=== PATIENT | female | born 1950 | race Hispanic/Latino ===

== ENCOUNTER 2024-07-04 17:09 | Emergency (ER) | payer BC ==
[2024-07-04] VITALS (9 sets, daily range): BP systolic 107–127; BP diastolic 52–64
[~2024-07-04] VITALS: Ht 165.1 cm; Wt 54.0 kg
[~2024-07-04 17:09] MED LIST: ULTRAM50 M1 PO
[2024-07-04] MEDS ORDERED: SODIUM CHLORIDE 0.9% 1,000 ML IV ONE (18:15)
[2024-07-04 18:47] LABS: BASO% 0.3 % (0-3); EOS% 0.4 % (0-8); HEMATOCRIT 36.7 % (37.0-47.0); IMMATURE GRANULOCYTES 0.2 % (0.0-5.0); LYMPH% 11.4 % (15-41); MEAN CELL VOLUME 95.1 fL CALC (80.0-100.0); MEAN CORPUSCULAR HGB 31.1 pG CALC (26.0-32.0); MEAN CORPUSCULAR HGB CONC 32.7 g/dL CAL (32.0-36.0); MONO% 8.6 % (2-13); NEUT# 7.91 thou/uL (2.00-7.15); NEUT% 79.1 % (42-76); RED BLOOD COUNT 3.86 mill/uL (4.20-5.60); RED CELL DISTRI WIDTH 12.4 % (11.5-15.5)
[2024-07-04 18:58] LABS: ALBUMIN 4.1 g/dL (3.2-5.0); BILIRUBIN, TOTAL 0.9 mg/dL (0.02-1.3); CREATININE 0.9 mg/dL (0.5-1.0); POTASSIUM 3.9 mmol/l (3.5-5.1); TOTAL PROTEIN 7.6 g/dL (6.3-8.2)
[2024-07-04 20:46] LABS: URINE BILIRUBIN - DIPSTICK Negative (NEGATIVE); URINE BLOOD DIPSTICK Moderate (NEGATIVE); URINE GLUCOSE - DIPSTICK Negative (NEGATIVE); URINE KETONE Negative (NEGATIVE); URINE NITRITE - DIPSTICK Negative (Negative); URINE PH 6.5 (4.5-8.0); URINE PROTEIN - DIPSTICK Trace mg/dL (NEG-TRACE); URINE UROBILINOGEN - DIPSTICK 0.2 E.U./dL (0.2)
[2024-07-04 20:56] LABS: URINE COLOR Yellow; URINE LEUK ESTERASE Small (NEGATIVE)
[2024-07-04 21:06] LABS: URINE SQUAMOUS EPITHELIAL CELL FEW EPI/hpf (0-FEW)
[2024-07-04] MEDS ORDERED: KETOROLAC TROMETHAMINE 30 MG/ML SDV IV ONE (21:20)
[2024-07-04] MEDS ORDERED: BACTRIM DS1 TAB PO (21:20)
[2024-07-04] MEDS ORDERED: ACETAMINOPHEN 500 MG TAB PO ONE (21:20)
[2024-07-06] MEDS ORDERED: CEFDINIR300 MG PO (10:57)
[2024-07-07] MEDS ORDERED: BACTRIM DS1 TAB PO (14:00)
[2024-07-07] MEDS ORDERED: CEFDINIR300 MG PO (14:00)
== END 2024-07-04 21:50 | disposition home or self-care (01) | DRG 690 ==
LOC: ED 17:09
PROVIDERS: Nurse Practitioner
DX: N39.0 Urinary tract infection, site not specified (principal); B96.20 Unspecified Escherichia coli [E. coli] as the cause of diseases classified elsewhere; R53.1 Weakness; Z20.822 Contact with and (suspected) exposure to COVID-19